=== PATIENT | female | born 1935 | race Caucasian/White ===

== ENCOUNTER 2025-01-23 06:15 | Day surgery (SDC) | payer MEDICARE ==
--- NOTE | 2025-01-22 15:25 | ELECTROCARDIOGRAPH REPORT ---
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 Nani Anderson Measurements Intervals [place] Rate: 59 P: 66 IN: 189 QRS: -37 QRSD: 83 T: 47 QT: 413 QTc: 410 Interpretive Statements Sinus bradycardia Left axis deviation Electronically Signed On 01-26-2025 7:05:[address] Nani Anderson Please click the below link to view image of tracing.
[2025-01-22 15:41] LABS: MEAN PLATELET VOLUME 8.4 FL (7.4-10.4); PRE OP HEMATOCRIT 42.1 % (35.0-45.0); PRE OP HEMOGLOBIN 14.2 g/dL (12.0-16.0); PRE OP PLATELET COUNT 232 X10'3 (140-440); PRE OP WHITE BLOOD COUNT 9.3 10'3 (4.8-10.8); RED CELL DISTRIBUTION WIDTH 14.7 % (11.5-14.5)
[2025-01-22 16:04] LABS: CREATININE 1.25 MG/DL (0.40-0.90); PRE OP ALT 18 U/L (30-65); PRE OP ANION GAP 6 (8-16); PRE OP AST 27 U/L (10-37); PRE OP BILIRUB, TOTAL 0.5 MG/DL (0.0-1.0); PRE OP GLUCOSE 99 MG/DL (70-104); PRE OP POTASSIUM 4.1 MMOL/L (3.4-5.1); PRE OP SODIUM 140 MMOL/L (135-145); TOTAL CARBON DIOXIDE 28.7 MMOL/L (24-32); eGFR 40 ML/MIN
--- NOTE | 2025-01-22 21:05 | RADIOLOGY REPORT ---
Procedure: CT CT CHEST ION Reason for study/Clinical History: LUNG MASS Comparison Study: None TECHNIQUE: Multidetector CT of the chest was performed from the lung apices to the upper abdomen without the use of intravenous contract. Axial, coronal and sagittal multiplanar reformats were performed. Radiation Dose Information: CT Dose: CTDI volume is 4.7 mGy. Dose-length product is 187 mGy*cm The dose indicators for CT are the volume Computed Tomography (CT) Dose Index (CTDIvol) and the Dose Length Product (DLP), and are measured in units of mGy and mGy-cm, respectively. These indicators are not patient dose, but values generated from the CT scanner acquisition factors. The report includes radiation exposure data for exposures received during this examination. FINDINGS: Lower neck: Unremarkable. Lungs: Diffuse peripheral increased reticulation and cystic change most prominent at the lung bases. Few masslike cavitary lesions are present in the right upper lobe measuring up to 2.2 cm. Heart/Vascular Structures: Cardiomegaly. Coronary artery calcifications. Vascular calcifications of the aorta. 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 Lymph Nodes: No adenopathy. Pleura: No pleural effusion or significant pneumothorax. Musculoskeletal: Degenerative changes of the spine. No acute osseous abnormality. Soft tissues: Normal. Upper abdomen: Limited portions of the upper abdomen are unremarkable. IMPRESSION: Diffuse peripheral increased reticulation and cystic change most prominent at the lung bases. This may represent changes of pulmonary fibrosis. Few masslike cavitary lesions are present in the right upper lobe measuring up to 2.2 cm. Differential considerations could include infectious or inflammatory etiology. Neoplasm cannot be excluded. Cardiomegaly. 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 Radiation optimization: All CT scans at this facility use at least one of these dose optimization techniques: automated exposure control mA and/or kV adjustment per patient size (includes targeted exams where dose is matched to clinical indication) or iterative reconstruction.
[~2025-01-23] VITALS: Ht 170.2 cm; Wt 74.8 kg
[~2025-01-23 06:15] MED LIST: ASPI-1265 PO; CALC-825 PO; COLLAGEN PO; EYE DROPS EACHEYE; GLUCOSAMINE PO; LEVO75TA7 PO; Multivitamin PO; OMEGA FISH OIL PO; Vitamin C PO
[2025-01-23] MEDS ORDERED: naloxone 2mg/2ml inj IV ONE (06:16)
[2025-01-23 06:22] VITALS: BP 124/74; PULSE 59; RESP 16; TEMP 97.4; O2SAT 96
[2025-01-23] MEDS: ringers solution, lacted 1,000 ML IV SCH (06:52)
[2025-01-23] MEDS ORDERED: fentaNYL/PF 50MCG/1 ML 2ML syringe ONE (08:11)
[2025-01-23] MEDS ORDERED: midazolam 1 mg/ML 2ml injection ONE (08:11)
[2025-01-23] MEDS ORDERED: rocuronium 10mg/ml inj IV ONE (09:08)
[2025-01-23] MEDS ORDERED: LIDOcaine 2% (20mg/ml) 5ml vial ONE (09:08)
[2025-01-23] MEDS ORDERED: dexamethasone sod phosphate 4mg/ml inj. ONE (09:08)
[2025-01-23] MEDS ORDERED: propofol inj 20 ML IV ONE (09:08)
[2025-01-23] MEDS ORDERED: glycopyrrolate 0.2mg/ml inj ONE (09:09)
[2025-01-23 09:22] VITALS: BP 136/72; PULSE 68; RESP 16; O2SAT 100
[2025-01-23 09:30] VITALS: BP 134/72; PULSE 66; RESP 21; O2SAT 99
[2025-01-23] MEDS ORDERED: fentaNYL/PF 50MCG/1 ML 2ML syringe IV PRN ×2 (09:30)
[2025-01-23] MEDS ORDERED: morphine 4 MG/ML inj SYRINge IV PRN ×2 (09:30)
[2025-01-23] MEDS ORDERED: enalaprilat 1.25mg/ml 2ml vial IV PRN (09:30)
[2025-01-23] MEDS ORDERED: labetalol 20mg/4ml (5mg/ml) syringe IV PRN (09:30)
[2025-01-23] MEDS ORDERED: HYDROmorphone/PF 0.2 MG/ML SYRINGE IV PRN ×2 (09:30)
[2025-01-23] MEDS ORDERED: ondansetron/PF 4mg/2ml inj IV PRN (09:30)
[2025-01-23] MEDS ORDERED: ringers solution, lacted 1,000 ML IV SCH (09:30)
[2025-01-23 09:40] VITALS: BP 124/74; PULSE 63; RESP 13; O2SAT 99
[2025-01-23 09:50] VITALS: BP 114/81; PULSE 65; RESP 12; O2SAT 98
--- NOTE | 2025-01-23 14:15 | OPERATIVE REPORT ---
DATE OF SURGERY: 01/23/2025 DICTATING PHYSICIAN: Rashi Argueta MD PROCEDURES: * Bronchoscopy with a robotic bronchoscopy system. * EBUS. * Bronchoscopy with Cone beam CT scan. PREOPERATIVE DIAGNOSIS: The patient had multiple right upper lobe nodules, all clustered in the same area. POSTOPERATIVE DIAGNOSIS: The patient had multiple right upper lobe nodules, all clustered in the same area. DESCRIPTION OF PROCEDURE: The patient signed a consent after indications, potential complications were explained, after which we took the usual timeout, the patient was intubated and sedated. We already had a plan to navigate into the lesion, which we did. We got a catheter inside and then we confirmed the position with a radial ultrasound. I got a good signal on the beginning, but it was not really where I needed it. What I wanted to see, I wanted to make sure that I was in the middle of the mass, so we did a cone beam CT scan with a needle in and brought a little bit of the edge, so we recalibrated and were able to get multiple samples on the multiple lesions on the right upper lobe. We got at least 10 different samples. The patient tolerated the procedure well. That included a transbronchial needle along with a transbronchial biopsy. Then we switched over to the EBUS as there were some small lymph nodes paratracheal. We got a few samples there too in zones 7, 10R, and 10L. We did a BAL on the left upper lobe. The patient tolerated the procedure well. No complications. Rashi Argueta MD TID: [id number] RECEIPT: [id number] ARAVIND/DANICA
== END 2025-01-23 09:57 | disposition home or self-care (01) ==
LOC: PAS 06:15 → EDBD 08:00 → PAS 09:57
PROVIDERS: ATTEND Internal Medicine Critical Care Medicine
DX: R91.8 Other nonspecific abnormal finding of lung field (principal); I10 Essential (primary) hypertension; E11.9 Type 2 diabetes mellitus without complications; E66.9 Obesity, unspecified; J44.9 Chronic obstructive pulmonary disease, unspecified; I25.2 Old myocardial infarction; M19.90 Unspecified osteoarthritis, unspecified site; Z90.49 Acquired absence of other specified parts of digestive tract; Z90.710 Acquired absence of both cervix and uterus; Z96.651 Presence of right artificial knee joint; Z96.643 Presence of artificial hip joint, bilateral; Z68.25 Body mass index [BMI] 25.0-25.9, adult
CPT/HCPCS: 31624; 31628; 31653; 36415; 71250; 80053; 82948; 85025; 87015; 87070; 87116; 87206; 88173; 88305; 88341; 88342; 93005; J1100; J2003; J2250; J2312; J2704; J2710; J3010; J3490; J7120; Z7506; Z7508; Z7512; 31622; 31625; 31626; 31654; A4618